=== PATIENT | female | born 1985 | race Caucasian/White ===

== ENCOUNTER → 2024-10-06 | Outpatient (CLI) | payer BC, SELFPAY ==
[2024-10-06 16:51] LABS: Alanine Aminotransferase 30 U/L (10-49); Albumin, Serum 4.5 gm/dL (3.5-5.0); Alkaline Phosphatase 85 U/L (46-116); Aspartate Amino Transferase 24 U/L (0-34); Bilirubin,Direct 0.2 mg/dL (0.0-0.3); Bilirubin,Total 0.4 mg/dL (0.3-1.2); Total Protein 6.3 gm/dL (5.7-8.2)
== END | disposition home or self-care (01) ==
PROVIDERS: PCP Internal Medicine; Referring Provider Student in an Organized Health Care Education/Training Program; Visit Provider Student in an Organized Health Care Education/Training Program
DX: B35.1 Tinea unguium (principal)
CPT/HCPCS: 36415; 80076

== ENCOUNTER → 2024-10-08 | Outpatient (CLI) | payer BC, SELFPAY ==
--- NOTE | 2024-10-08 15:15 | XR_ITS ---
Examination: Screening digital mammography, bilateral Computer aided detection 3-D breast Tomosynthesis, bilateral Date and time of exam: October 08, 2024 1525 hours Indication: Screening Technique: Nonmagnified MLO, CC views of the breasts to been obtained, reconstructed from 3-D Tomosynthesis images. R2 computer aided detection program utilized for evaluation of suspicious masses and/or abnormal calcifications. 3-D Tomosynthesis images obtained. Findings: Scattered areas of fibroglandular density Increased subtle radiodensity over 4 cm in the nipple level right breast mid to anterior depth Benign calcifications Impression: BI-RADS Category 0: Incomplete: Need additional imaging evaluation 4 mm focal asymmetry nipple level right breast mid to anterior depth, recommend follow-up spot tomographic views of this asymmetry as well as right breast sonography to complete the workup
== END | disposition home or self-care (01) ==
PROVIDERS: PCP Internal Medicine; Referring Provider Internal Medicine; Visit Provider Internal Medicine
DX: Z12.31 Encounter for screening mammogram for malignant neoplasm of breast (principal); N64.89 Other specified disorders of breast
CPT/HCPCS: 77063; 77067

== ENCOUNTER → 2024-11-12 | Outpatient (CLI) | payer BC, SELFPAY ==
--- NOTE | 2024-11-12 14:30 | XR_ITS ---
Examination: Breast ultrasound, unilateral, right complete Date and time of exam: November 12, 2024 1452 hours INDICATIONS: Mammogram October 08, 2024 4 mm focal asymmetry nipple level right breast mid to anterior depth Technique: Real-time blackmon scale ultrasonographic imaging performed right breast including all 4 quadrants as well as nipple retroareolar and axillary region. Findings: Retroareolar oval mass circumscribed 5 x 3 x 5 mm IMPRESSION: BI-RADS Category 3: Probably benign findings Recommend 1 additional 6 month right breast sonogram follow-up to document stability of retroareolar nodule described above
--- NOTE | 2024-11-12 15:00 | XR_ITS ---
Examination: Diagnostic digital mammography, unilateral, right November 12, 2024 1500 hours INDICATIONS: Computer aided detection 3-D breast Tomosynthesis, unilateral Date and time of exam: Mammogram October 08, 2024 focal asymmetry retroareolar right breast Technique: Nonmagnified MLO, CC views of the right breast have been obtained, reconstructed from 3-D Tomosynthesis images. R2 computer aided detection program utilized for evaluation of suspicious masses and/or abnormal calcifications. 3-D Tomosynthesis images obtained. Findings: Scattered areas of fibroglandular density 12 mm circumscribed oval mass retroareolar region right breast Impression: BI-RADS category 3: Probably benign findings One additional 6 month right mammogram follow-up is needed to document stability of retroareolar nodule described above
== END | disposition home or self-care (01) ==
PROVIDERS: PCP Internal Medicine; Referring Provider Internal Medicine; Visit Provider Internal Medicine
DX: R92.331 Mammographic heterogeneous density, right breast (principal); N63.41 Unspecified lump in right breast, subareolar
CPT/HCPCS: 76641; 77061; 77065; G0279

== ENCOUNTER → 2025-06-17 | Outpatient (CLI) | payer BC, SELFPAY ==
--- NOTE | 2025-06-17 15:15 | XR_ITS ---
Examination: Diagnostic digital mammography, unilateral, right Computer aided detection 3-D breast Tomosynthesis, unilateral Date and time of exam: June 17, 2025 1525 hours INDICATIONS: 12 mm circumscribed mass retroareolar region right breast on mammogram November 12, 2024 Technique: Nonmagnified MLO, CC views of the right breast have been obtained, reconstructed from 3-D Tomosynthesis images. R2 computer aided detection program utilized for evaluation of suspicious masses and/or abnormal calcifications. 3-D Tomosynthesis images obtained. Findings: Scattered areas of fibroglandular density. Stable retroareolar oval nodule circumscribed Impression: BI-RADS category 0: Incomplete: Need additional imaging evaluation Recommend repeat right breast sonography to compare with the right breast sonogram September 11, 2025 and confirm stability of the retroareolar nodule
== END | disposition home or self-care (01) ==
LOC: CDIM 15:13
PROVIDERS: Referring Provider Internal Medicine; Visit Provider Internal Medicine
DX: N63.41 Unspecified lump in right breast, subareolar (principal)
CPT/HCPCS: 77061; 77065; G0279

== ENCOUNTER → 2025-07-27 | Outpatient (CLI) | payer BC, SELFPAY ==
--- NOTE | 2025-07-27 07:15 | XR_ITS ---
Examination: Breast ultrasound, unilateral, right Date and time of exam: July 27, 2025, 0729 hours INDICATIONS: Ultrasound November 12 2024 retroureteral oval mass 5 x 3 x 5 mm Technique: Real-time blackmon scale ultrasonographic imaging performed right breast including all 4 quadrants as well as nipple retroareolar and axillary region. Findings: Retroareolar circumscribed nodule 3 x 4 mm Axillary lymph nodes, 7 x 4 x 6 mm lymph node in the right axilla is relatively featureless IMPRESSION: BI-RADS Category 3: Probably benign findings Recommend 1 additional 6-month right breast sonography follow-up to document stability of right axillary lymph nodes
== END | disposition home or self-care (01) ==
LOC: CDIM 07:15
PROVIDERS: PCP Internal Medicine; Referring Provider Internal Medicine; Visit Provider Internal Medicine
DX: R92.8 Other abnormal and inconclusive findings on diagnostic imaging of breast (principal)
CPT/HCPCS: 76641